=== PATIENT | male | born 1985 | race Two or more races ===

== ENCOUNTER 2019-02-04 22:05 | Emergency (ER) | payer OTHER ==
[~2019-02-04] VITALS: Ht 180.3 cm; Wt 83.9 kg
[2019-02-04 22:07] VITALS: Ht 180.3 cm; Wt 83.9 kg
[2019-02-04 22:39] VITALS: BP 130/89
== END 2019-02-04 22:39 | disposition other institution (70) ==
LOC: ED 22:05
DX: Z02.89 Encounter for other administrative examinations (principal)